=== PATIENT | male | born 1995 | race Caucasian/White ===

== ENCOUNTER → 2020-01-27 | Outpatient (CLI) | payer OTHER ==
[2020-01-27 10:58] LABS: HEMOGLOBIN 15.2 g/dL (13.0-17.5); RED BLOOD COUNT 4.91 x10^6/uL (4.30-5.70); RED CELL DISTRIBUTION WIDTH 14.4 % (11.5-14.5); WHITE BLOOD COUNT 5.7 x10^3/uL (4.0-11.0)
[2020-01-27 11:27] LABS: ALBUMIN 3.5 g/dL (3.4-5.0); CALCIUM 9.2 mg/dL (8.5-10.1); CREATININE 1.2 mg/dL (0.7-1.3); GFR 74.4; POTASSIUM 3.8 mmol/L (3.5-5.1); TOTAL BILIRUBIN 0.7 mg/dL (0.2-1.0)
[2020-01-27 11:40] LABS: FREE T4 0.9 ng/dL (0.76-1.46); THYROID STIM HORMONE (TSH) 1.217 uIU/mL (0.358-3.74)
== END | disposition home or self-care (01) ==
LOC: LAB 10:33
PROVIDERS: ATTEND Nurse Practitioner Family
DX: R61 Generalized hyperhidrosis (principal); M75.101 Unspecified rotator cuff tear or rupture of right shoulder, not specified as traumatic
CPT/HCPCS: 36415; 80053; 84439; 84443; 85027

== ENCOUNTER → 2020-01-27 | Outpatient (CLI) | payer OTHER ==
--- NOTE | 2020-01-27 12:26 | KCIC ---
STUDY: MRI of the left shoulder without contrast INDICATION: Recurrent dislocation. Pain. COMPARISON: None. TECHNIQUE: Multiplanar MR imaging of the left shoulder performed without the use of intravenous or intra-articular contrast. FINDINGS: Mild study degradation on account of motion. AC joint: No significant arthrosis. Thin fluid signal within the subacromial subdeltoid bursa. Rotator cuff: Intact. A thin focus of tracking T2 signal elevation at the interface of the supraspinatus/infraspinatus at the myotendinous junction is favored a vessel. Normal rotator cuff musculature signal and bulk. Labrum: Only seen on the T2 coronal sequence is possible trace edema-like signal adjacent to the anterior/inferior glenoid, image 13 series 13 but no definite labral or capsule disruption is seen at this location. Long head biceps tendon: Intact and normally located. Cartilage: Intact. Bones: No fracture depression typical of a Hill-Sachs deformity. There is some mild cystic change at the posterior/superior humeral head but this does not appear traumatic. Miscellaneous: No shoulder joint effusion. Impression: 1. No osseous or soft tissue injury is identified that would correspond to the reported dislocation event. If there is ongoing concern, the study could be repeated to include intra-articular contrast and obtainment of an ABER view to better assess the labrum. 2. Intact rotator cuff. Electronically signed by: JESUS MANUEL CARTER MD (01/27/2020 12:23 PM) [id number]
== END | disposition home or self-care (01) ==
LOC: KCIC MRI 09:07
PROVIDERS: ATTEND Nurse Practitioner Family
DX: M25.512 Pain in left shoulder (principal)
CPT/HCPCS: 73221

== ENCOUNTER → 2020-05-18 | Outpatient (CLI) | payer OTHER ==
[2020-05-18 11:23] LABS: ALBUMIN 4.1 g/dL (3.4-5.0); ALBUMIN/GLOBULIN RATIO 1.2 (1.0-1.7); CALCIUM 8.8 mg/dL (8.5-10.1); CREATININE 1.3 mg/dL (0.7-1.3); GFR 67.8; TOTAL BILIRUBIN 0.9 mg/dL (0.2-1.0); TOTAL PROTEIN 7.4 g/dL (6.4-8.2)
== END ==
LOC: LAB 10:31
PROVIDERS: ATTEND Nurse Practitioner Family
DX: R42 Dizziness and giddiness (principal)
CPT/HCPCS: 36415; 80053; 83036

== ENCOUNTER → 2020-09-11 | Outpatient (CLI) | payer OTHER ==
[~2020-09-11] MED LIST: IOHEXOL 240 MG/ML 50ML VIAL. PO ONE; IOHEXOL 300 MG/ML 100ML VIAL. IV ONE
--- NOTE | 2020-09-11 11:45 | KCIC ---
CT of the abdomen and pelvis with contrast 09/11/2020 INDICATION: Left lower quadrant mass, and abdominal pain COMPARISON STUDY: None TECHNIQUE: Multidetector CT imaging of the abdomen and pelvis was performed following the administrat ion of IV and oral contrast. FINDINGS: Lung bases are unremarkable. Liver, gallbladder, adrenal glands, spleen, pancreas, and kidneys are unremarkable. There is no evide nce of bowel obstruction. No acute inflammatory changes involving visualized bowel are identified. Th e appendix is unremarkable. The bladder is predominantly decompressed limiting evaluation. No gross a bnormality is identified. No evidence of acute osseous abnormality is seen. No inguinal or ventral he rnias identified. IMPRESSION: No evidence of acute intra-abdominal abnormality CT DOSING PQRS STATEMENT: One or more of the following individualized dose reduction techniques were utilized for this examinat ion: 1. Automated exposure control 2. Adjustment of the mA and/or kV according to patient size 3. Use of iterative reconstruction technique Electronically signed by: Jack Cronin MD (09/11/2020 11:42 AM) [id number]
== END ==
LOC: KCIC CT 09:24
PROVIDERS: ATTEND Nurse Practitioner Family
DX: R19.00 Intra-abdominal and pelvic swelling, mass and lump, unspecified site (principal)
CPT/HCPCS: 74177; Q9966; Q9967